=== PATIENT | female | born 1990 | race Caucasian/White ===

== ENCOUNTER 2019-01-12 13:52 | Outpatient (CLI) | payer BC ==
--- NOTE | 2019-01-12 14:11 | RAD ---
3 views right foot: 01/12/2019 COMPARISON: None HISTORY: Right foot injury FINDINGS: There is an obliquely oriented nondisplaced fracture at the base of the fifth proximal phal anx with no evidence for dislocation or intra-articular extension. No additional fracture noted. IMPRESSION: Nondisplaced obliquely oriented fracture at the base of the fifth proximal phalanx.
== END 2019-01-12 13:53 | disposition home or self-care (01) ==
LOC: BICRAD 13:52
PROVIDERS: ATTEND Physician Assistant Medical
DX: S99.921A Unspecified injury of right foot, initial encounter (principal); S92.514A Nondisplaced fracture of proximal phalanx of right lesser toe(s), initial encounter for closed fracture

== ENCOUNTER 2023-01-14 10:26 | Outpatient (CLI) | payer BC | END 2023-01-14 10:27 | disposition home or self-care (01) | LOC: BICRAD 10:26 | PROVIDERS: ATTEND Nurse Practitioner Primary Care | DX: S99.921A Unspecified injury of right foot, initial encounter (principal); S92.521A Displaced fracture of middle phalanx of right lesser toe(s), initial encounter for closed fracture ==